=== PATIENT | female | born 1990 | race Caucasian/White ===

== ENCOUNTER 2022-05-05 23:45 | Emergency (ER) | payer SELFPAY ==
[~2022-05-05] VITALS: Ht 160 cm; Wt 56.7 kg
--- NOTE | 2022-05-06 00:10 | NUR ---
TO ER BED 13. [id number]. FOR BIZAARE BEHAVIOR. FOUND W/ BOTTLE OF TRAZADONE & BAG OF UNMARKED GUMMIES. PT CONTINUES TO SHOW BIZAARE BEHAVIOR. BELONGINGS OBTAINED AND SECURED. CONNECTED TO MONITOR. SITTER AT BEDSIDE. WILL CONTINUE TO MONITOR.
[2022-05-06] MEDS ORDERED: diphenhydrAMINE HCL 50 MG/ML VIAL ONE (00:12)
[2022-05-06] MEDS ORDERED: LORAZEPAM INJ 2 MG/ML VIAL ONE (00:13)
[2022-05-06] MEDS ORDERED: HALOPERIDOL LACTATE INJ 5 MG/ML VIAL ONE (00:13)
[2022-05-06] MEDS ORDERED: LORAZEPAM INJ 2 MG/ML VIAL IM ONE (00:30)
[2022-05-06] MEDS ORDERED: diphenhydrAMINE HCL 50 MG/ML VIAL IM ONE (00:30)
[2022-05-06] MEDS ORDERED: HALOPERIDOL LACTATE INJ 5 MG/ML VIAL IM ONE (00:30)
[2022-05-06 00:51] LABS: BASOPHILS # (AUTO) 0.1 K/uL (0.0-0.2); BASOPHILS % (AUTO) 0.4 % (0.0-2.0); HEMATOCRIT 39 % (33-45); LYMPHOCYTES # (AUTO) 2.3 K/uL (0.8-4.8); LYMPHOCYTES % (AUTO) 16.7 % (20.0-44.0); MEAN CORPUSCULAR HGB CONC 33 g/dl (31.0-36.0); MEAN CORPUSCULAR VOLUME 90 fL (82-100); MONOCYTES # (AUTO) 0.8 K/uL (0.1-1.30); NEUTROPHILS # (AUTO) 10.3 K/uL (1.8-8.9); NEUTROPHILS % (AUTO) 76.9 % (43.0-81.0); PLATELET COUNT (AUTO) 274 K/uL (150-450); RED BLOOD CELL COUNT(AUTO) 4.37 MIL/uL (4.0-5.2); WHITE BLOOD COUNT (AUTO) 13.5 K/uL (4.3-11.0)
[2022-05-06 01:18] LABS: ALANINE AMINOTRANSFERASE 21 U/L (12-78); ALBUMIN 3.8 g/dL (3.4-5.0); ALCOHOL, BLOOD < 3 mg/dL (0-0); ALKALINE PHOSPHATASE 50 U/L (46-116); ASPARTATE AMINOTRANSFERASE 25 U/L (15-37); BILIRUBIN,DIRECT 0.2 mg/dL (0.0-0.2); BILIRUBIN,TOTAL 0.5 mg/dL (0.2-1.0); CALCIUM, SERUM 9.4 mg/dL (8.5-10.1); CARBON DIOXIDE 26 mmol/L (21-32); CHLORIDE 100 mmol/L (98-107); CREATININE 0.8 mg/dL (0.6-1.3); GLUCOSE 126 mg/dL (74-106); POTASSIUM 3.5 mmol/L (3.5-5.1); SODIUM SERUM 135 mmol/L (136-145); TOTAL PROTEIN, SERUM 8.1 g/dL (6.4-8.2); UREA NITROGEN, BLOOD 7 mg/dL (7-18)
[2022-05-06 01:19] LABS: ACETAMINOPHEN 0 ug/ml (10-30)
--- NOTE | 2022-05-06 02:57 | NUR ---
COVID SWAB COLLECTED
--- NOTE | 2022-05-06 02:57 | NUR ---
URINE COLLECTED AND SENT TO LAB
[2022-05-06 03:30] LABS: BILIRUBIN,URINE NEGATIVE (NEGATIVE); COLOR,URINE YELLOW (YELLOW); LEUKOCYTE ESTERASE ,URINE NEGATIVE (NEGATIVE); NITRITE, URINE NEGATIVE (NEGATIVE); PROTEIN,URINE NEGATIVE (NEGATIVE); UGLUCOSE NEGATIVE (NEGATIVE); UROBILINOGEN,URINE 0.2 EU/dL (0.2)
[2022-05-06 03:40] LABS: BACTERIA,URINE Rare /HPF (None Seen); RBC,URINE 0-2 /HPF (0-2); SQUAMOUS EPITHELIAL CELL,UR Few /HPF (None Seen); WBC,URINE 0-2 /HPF (0-3)
--- NOTE | 2022-05-06 04:15 | NUR ---
PT CONTINUES TO BE MONITORED, SITTER AT BEDSIDE
--- NOTE | 2022-05-06 08:19 | NUR ---
[facility] [place] [phone] [place]. dad, Dick, patient requested them called, BF is Yaw- according to her
[2022-05-06 08:47] VITALS: BP 111/17
--- NOTE | 2022-05-06 08:48 | NUR ---
Patient discharged to home in stable condition. Written and verbal after care instructions given. Patient verbalizes understanding of instruction.
== END 2022-05-06 08:48 | disposition home or self-care (01) ==
LOC: ER 23:47
DX: R46.2 Strange and inexplicable behavior (principal); D72.829 Elevated white blood cell count, unspecified; R41.0 Disorientation, unspecified; Z20.822 Contact with and (suspected) exposure to COVID-19
CPT/HCPCS: 99291; 96372 ×2; 85025; 80048; 80076; 84703; 81001; 36415; 84702; 87426; 80143; 80320; 80307; J2060; J1200; J1630; C9803; G0480